=== PATIENT | female | born 1950 | race Caucasian/White ===

== ENCOUNTER → 2017-02-03 | Outpatient (CLI) | payer OTHER ==
--- NOTE | 2017-02-03 12:57 | KCIC ---
CHEST PA LATERAL dated 02/03/2017 12:00 AM. Comparison: None. Clinical Indication: Possible abnormality seen on recent spine films., RECENT INJURY. Findings: PA and lateral views were obtained. Heart and mediastinal contours within normal limits. Small well-defined nodular density posterior aspect of right upper lobe measures 5 mm, projected over the posterior sixth right rib. Lungs are otherwise clear. No consolidation or pleural effusion. No pneumothorax. Impression: 1. No acute radiographic abnormality. 2. Nodular density in the right upper lobe may represent a noncalcified pulmonary nodule or a small granuloma. 3-6 month follow-up chest x-ray or CT to ensure stability. Electronically signed by: Franck Lofton MD (02/03/2017 12:54 PM)
== END | disposition home or self-care (01) ==
LOC: KCIC 12:17
PROVIDERS: ATTEND Chiropractor
DX: R91.1 Solitary pulmonary nodule (principal)
CPT/HCPCS: 71020